=== PATIENT | female | born 1950 | race Caucasian/White ===

== ENCOUNTER 2023-09-27 16:02 | Emergency (ER) | payer OTHER, SELFPAY ==
[2023-09-27 16:03] VITALS: BP 176/107
--- NOTE | 2023-09-27 16:38 | ED.GENMED ---
History of Present Illness
General
Chief Complaint: Breathing Problem
Source: patient
Time Seen by Provider: 09/27/23 16:25
Travel History
Have you had any contact with someone who has COVID-19?: No
Do you have any symptoms of coronavirus? Fever > 100 degrees, chills, cough, shortness of breath, sore throat, loss of taste or smell, muscle aches, or headache?: Yes
Symptoms:: SOB
History of Present Illness
History of Present Illness:
72-year-old female with past medical history of asthma and hyperlipidemia presented emergency department for evaluation of gradually worsening shortness of breath and URI-like symptoms been ongoing since this past Sunday. Patient notes that she had
COVID around 1 year ago and has been left with lingering fatigue, she was concerned she had COVID reinfection so went to local urgent care where she tested negative for COVID but was started on an inhaler, nasal spray and was given a prescription
for steroids. Patient started the steroids on Sunday and has been taking them as prescribed but notes she still has continued cough and shortness of breath. Patient denies any fevers, chills, rigors, chest pain, palpitations, diaphoresis or any
other concerns. She did call her primary care physician who gave her albuterol Respules for nebulizer machine and she did note initial improvement with the Respules but did not receive improvement today.
Past History
Past History
ED Past Medical History: Asthma and Hypercholesterolemia
ED Past Surgical History: Appendectomy, Gynecological and Other (Bilateral lumpectomy)
Social History
Tobacco: Non-smoker
Alcohol: None
Drug: None
Personal:
Living: with family
Review of Systems
Review of Systems
All Other Systems: ROS reviewed and negative except as documented in HPI and ROS
Phy Exam
Physical Exam
Physical Exam:
GENERAL: Alert , in no apparent distress, hoarse and raspy voice
EYE: conjunctiva clear
NECK: Supple
ENT: o/p clr, mmm.
CARDIAC: Regular rate and rhythm, no murmur
LUNGS: Clear breath sounds bilaterally, no acute respiratory distress, no wheezes/rales/rhonchi, no tachypnea
NEUROLOGICAL: Alert and oriented
SKIN: Warm and dry, skin intact.
MUSCULOSKELETAL: well perfused. No edema
PSYCH: Normal and appropriate interaction.
Scores
Heart Failure Risk
Heart Failure Risk Score: Not Applicable
Heart Score for Chest Pain Patients
STEMI patient?: Not applicable
Withdrawal Assessment of Alcohol
Withdrawal Assessment Completed?: Not applicable
Course
Orders/Labs/Results
Orders:
Orders
09/27/23 16:36
Albuterol Nebs [Ventolin Nebules] 2.5 mg INH R NOW STA
CR Chest - 2 Views Urgent
Comment:
Reason For Exam: cough, SOB
Vital Signs
Initial and Last Documented VS:
Initial Vital Signs
Temp Pulse Resp BP Pulse Ox
98.0 F 79 18 176/107 98
09/27/23 16:03 09/27/23 16:03 09/27/23 16:03 09/27/23 16:03 09/27/23 16:03
Last Documented Vital Signs
Temp Pulse Resp BP Pulse Ox
98.0 F 79 18 141/75 98
09/27/23 16:03 09/27/23 16:03 09/27/23 16:03 09/27/23 17:00 09/27/23 16:03
MDM/Problems Addressed
Differential Diagnosis Includes:
Pneumonia, viral URI, pharyngitis, laryngitis
MDM/Problems Addressed:
72-year-old female presenting to the emergency department for evaluation of worsening shortness of breath over the last 4 days, seemingly minimal improvement with medications prescribed by urgent care and primary care physician. On arrival here
patient is hypertensive however her heart rate, respiratory rate and oxygen saturation are within normal limits. Will obtain chest x-ray to rule out pneumonia. Will also provide with an albuterol nebulizer for symptomatic relief. Reassessment
following. Ultimately I suspect viral etiology to be most likely diagnosis
*Radiology
Radiology exam reviewed: preliminary read by ED provider (Unremarkable chest x-ray)
*Pulse Oximetry
Patient hypoxic: no
*Critical Care Note
Total Time (30-74mins, 75-104mins- exclusive of procedures): Not Applicable
Patient Management
Escalation/DeEscalation of care consider admission/obs:
Patient's chest x-ray without any signs of pneumonia. She notes improvement with the albuterol nebulizer we gave her here. Again I discussed with patient that I am minimally suspicious for bacterial etiology however given her persistent symptoms
despite medications already given will provide with a prescription for doxycycline. Advise she wait at least 2-3 more days before filling the antibiotic. Patient expressed understanding. Aware of return precautions emergency department but
otherwise stable for discharge home.
ED Attending Note
-
Portions of this chart may have been created with voice recognition software.� Occasional wrong word or��sound alike� substitutions may have occurred due to the inherent limitations of voice recognition software.
Discharge Plan
Departure
Patient Disposition: Home (Routine Discharge)
Date of Disposition: 09/27/23
Time of Disposition: 17:34
Patient with high blood pressure during this ER visit?: Yes
Discharge Problem:
URI (upper respiratory infection)
Instructions: Bacterial Upper Respiratory Infection, Adult (DC)
Prescriptions:
New
doxycycline hyclate 100 mg tablet
100 mg PO BID 7 Days Qty: 14 0RF
No Action
citalopram 20 MG tablet
20 mg PO QPM
omeprazole [Prilosec] 10 MG capsule,delayed release(DR/EC)
10 mg PO QPM
coenzyme [id number] E [Co Q-10 (with Vit E)] 1 EACH capsule
1 tab PO QPM
pramipexole [Mirapex] 1.5 MG tablet
1.5 mg PO DAILY
Referrals:
Gifty Mix PA-C [Family Provider] -
Interventions
Interventions:
*Risk Screen - Suicide Last Done: 09/27/23 16:03
*General Assessment Last Done: 09/27/23 16:03
*Neglect/Abuse Screening Last Done: 09/27/23 16:03
ED- Fall Risk Assessment Last Done: 09/27/23 16:43
*ED COVID-19 Vaccine History Last Done: 09/27/23 16:03
*Nursing Disposition Last Done: 09/27/23 17:45
ED- Cardiac Assessment Last Done: 09/27/23 16:43
ED- Pulmonary Assessment Last Done: 09/27/23 16:43
Discharge Date and Time
Discharge Date/Time: 09/27/23 17:45
[2023-09-27 16:43] VITALS: BMI 33.2
[2023-09-27 16:44] VITALS: BP 140/88
[2023-09-27] MEDS: VENTOLIN NEBULES 2.5 MG INH (16:47)
[2023-09-27 17:00] VITALS: BP 141/75
== END 2023-09-27 17:45 | disposition home or self-care (01) ==
LOC: EMR 16:02
PROVIDERS: EMERGENCY PHYSICIAN Emergency Medicine; FAMILY PHYSICIAN Student in an Organized Health Care Education/Training Program
DX: J06.9 Acute upper respiratory infection, unspecified (principal); R53.83 Other fatigue; J45.909 Unspecified asthma, uncomplicated; E78.00 Pure hypercholesterolemia, unspecified; Z86.16 Personal history of COVID-19; Z88.5 Allergy status to narcotic agent; Z88.8 Allergy status to other drugs, medicaments and biological substances; Z88.1 Allergy status to other antibiotic agents; Z91.040 Latex allergy status
CPT/HCPCS: 99283; 94640; 71046

== ENCOUNTER → 2024-01-24 16:16 | Outpatient (REF) | payer OTHER, SELFPAY | LOC: PAVMRI 16:16 | PROVIDERS: ATTENDING PHYSICIAN Student in an Organized Health Care Education/Training Program | DX: R41.3 Other amnesia (principal) | CPT/HCPCS: 70551 ==

== ENCOUNTER → 2024-12-30 15:21 | Outpatient (REF) | payer OTHER, SELFPAY | LOC: HWRAD 15:21 | PROVIDERS: ATTENDING PHYSICIAN Student in an Organized Health Care Education/Training Program | DX: M25.511 Pain in right shoulder (principal) | CPT/HCPCS: 73030 ==

== ENCOUNTER → 2025-05-31 12:16 | Outpatient (REF) | payer OTHER, SELFPAY | LOC: PAVMRI 12:16 | PROVIDERS: ATTENDING PHYSICIAN Student in an Organized Health Care Education/Training Program | DX: R41.3 Other amnesia (principal) | CPT/HCPCS: 70551 ==